=== PATIENT | female | born 1990 | race Caucasian/White ===

== ENCOUNTER → 2016-08-25 | Outpatient (CLI) | payer BC ==
[2016-08-25 14:47] LABS: APPEARANCE,URINE SLIGHTLY-CLOUDY; BILIRUBIN,URINE NEGATIVE (NEGATIVE); GLUCOSE, URINE NEGATIVE (NEGATIVE); KETONES,URINE NEGATIVE (NEGATIVE); LEUKOCYTE ESTERASE,URINE NEGATIVE (NEGATIVE); NITRITE,URINE NEGATIVE (NEGATIVE); PROTEIN,URINE NEGATIVE (NEGATIVE); URINE SPECIFIC GRAVITY 1.003; UROBILINOGEN,URINE NEGATIVE mg/dL (<2.0)
[2016-08-25 14:48] LABS: ABSOLUTE EOSINOPHILS # (AUTO) 0.1 10^3/uL (0.0-0.6); ABSOLUTE LYMPHOCYTES (AUTO) 1.5 10^3/uL (0.5-4.7); ABSOLUTE MONOCYTES (AUTO) 0.5 10^3/uL (0.1-1.4); ABSOLUTE NEUT (AUTO) 1.9 10^3/uL (1.7-8.2); BASOPHILS % (AUTO) 0.4 % (0-2); EOSINOPHILS % (AUTO) 1.7 % (0-6); HEMOGLOBIN 13.4 g/dL (12.0-15.5); HGB HCT DIFFERENCE -1.8; LYMPHOCYTES % (AUTO) 38.2 % (13-45); MEAN CORPUSCULAR HEMOGLOBIN 27.9 pg (27.0-33.4); MEAN CORPUSCULAR HGB CONC 31.9 g/dL (32.0-36.0); MEAN CORPUSCULAR VOLUME 88 fl (80-97); MONOCYTES % (AUTO) 11.8 % (3-13); RED CELL DISTRIBUTION WIDTH 12.7 % (11.5-14.0); SEGMENTED NEUTROPHILS % (AUTO) 47.9 % (42-78); WHITE BLOOD COUNT 3.9 10^3/uL (4.0-10.5)
[2016-08-25 15:15] LABS: ALANINE AMINOTRANSFERASE 43 U/L (9-52); ALBUMIN 5.2 g/dL (3.5-5.0); ALKALINE PHOSPHATASE 54 U/L (38-126); ANION GAP 14 (5-19); ASPARTATE AMINO TRANSFERASE 34 U/L (14-36); BILIRUBIN,TOTAL 0.7 mg/dL (0.2-1.3); BLOOD UREA NITROGEN 9 mg/dL (7-20); CALCIUM 9.9 mg/dL (8.4-10.2); CARBON DIOXIDE 26 mmol/L (22-30); CHLORIDE 101 mmol/L (98-107); CREATININE RESULT 0.63 mg/dL (0.52-1.25); GLUCOSE 90 mg/dL (75-110); POTASSIUM 4.4 mmol/L (3.6-5.0); SODIUM 141.2 mmol/L (137-145); TOTAL PROTEIN 8.1 g/dL (6.3-8.2)
[2016-08-27 07:39] LABS: HEPATITIS C VIRUS AB 0.1 s/co ratio (0.0-0.9)
[2016-08-27 12:44] LABS: VARICELLA ZOSTER IGG AB 1194 index (Immune >165)
== END ==
LOC: OD 13:42
DX: Z00.00 Encounter for general adult medical examination without abnormal findings (principal)
CPT/HCPCS: 36415; 80053; 80074; 81001; 83036; 84443; 85025; 86704; 86705; 86706; 86707; 86787; 86803; 87340; 87350

== ENCOUNTER 2020-04-01 04:57 | Inpatient (IN) | payer OTHER ==
[2020-03-29 10:18] LABS: APPEARANCE,URINE CLEAR; BILIRUBIN,URINE NEGATIVE (NEGATIVE); COLOR,URINE STRAW; GLUCOSE, URINE NEGATIVE (NEGATIVE); KETONES,URINE NEGATIVE (NEGATIVE); LEUKOCYTE ESTERASE,URINE NEGATIVE (NEGATIVE); NITRITE,URINE NEGATIVE (NEGATIVE); PROTEIN,URINE NEGATIVE (NEGATIVE); URINE SPECIFIC GRAVITY 1.004; UROBILINOGEN,URINE NEGATIVE mg/dL (<2.0)
[2020-03-29 10:20] LABS: HEMATOCRIT 36.9 % (36.0-47.0); HEMOGLOBIN 12.6 g/dL (12.0-15.5); MEAN CORPUSCULAR HEMOGLOBIN 30.4 pg (27.0-33.4); MEAN CORPUSCULAR HGB CONC 34.2 g/dL (32.0-36.0); MEAN CORPUSCULAR VOLUME 89 fl (80-97); PLATELET COUNT 183 10^3/uL (150-450); RED BLOOD COUNT 4.16 10^6/uL (3.72-5.28); RED CELL DISTRIBUTION WIDTH 13.6 % (11.5-14.0)
[2020-03-29 10:49] LABS: URINE AMPHETAMINES SCREEN NEGATIVE; URINE BARBITURATES SCREEN NEGATIVE; URINE BENZODIAZEPINES SCREEN NEGATIVE; URINE COCAINE SCREEN NEGATIVE; URINE MARIJUANA (THC) SCREEN NEGATIVE; URINE METHADONE SCREEN NEGATIVE; URINE PHENCYCLIDINE SCREEN NEGATIVE
[2020-03-29 11:00] LABS: ABSOLUTE LYMPHOCYTES# (MANUAL) 1.8 10^3/uL (0.5-4.7); ABSOLUTE MONOCYTES # (MANUAL) 0.8 10^3/uL (0.1-1.4); BAND NEUTROPHILS % (MANUAL) 1 % (3-5); BASOPHILS % (MANUAL) 0 % (0-2); EOSINOPHILS % (MANUAL) 0 % (0-6); LYMPHOCYTES % (MANUAL) 22 % (13-45); METAMYELOCYTES % (MANUAL) 1 % (0-1); MONOCYTES % (MANUAL) 11 % (3-13); SEGMENTED NEUTROPHILS % (MAN) 61 % (42-78); TOTAL CELLS COUNTED 100
[2020-03-29 11:01] LABS: PLATELET COMMENT ADEQUATE; RBC MORPHOLOGY COMMENT NORMO-CYTIC/CHROMIC
[2020-04-01] MEDS ORDERED: CEFAZOLIN SODIUM 2 GM in DEXTROSE 5%-WATER 100 ML IV PRN (05:00)
[2020-04-01] MEDS ORDERED: CEFAZOLIN 2 GM/D5W RTU 2 GM/50 ML RTUPB IV PRN (05:00)
[2020-04-01] MEDS ORDERED: LIDOCAINE 0.5% INJ-PF (5 MG/ML) 50 ML SDV SUBCUT PRN (05:00)
[2020-04-01] MEDS ORDERED: NORMAL SALINE 1000 ML 1,000 ML IV ONE (05:45)
[2020-04-01] MEDS ORDERED: EPHEDRINE SULFATE INJ 50 MG/1 ML AMPULE ONE ×2 (06:29→13:24)
[2020-04-01] MEDS ORDERED: KETOROLAC TROMETHAMINE INJ/PF 30 MG/1 ML SDV ONE (06:29)
[2020-04-01] MEDS ORDERED: OXYTOCIN 10 UNIT/ML VIAL ONE ×2 (06:29→09:31)
[2020-04-01] MEDS ORDERED: FENTANYL CITRATE INJ/PF 100 MCG/2 ML AMPUL ONE ×2 (06:29→14:17)
[2020-04-01] MEDS ORDERED: ACETAMINOPHEN 0 MG/0 ML RTUPB IV ONE (06:30)
[2020-04-01] MEDS ORDERED: OXYTOCIN/0.9 % SODIUM CHLORIDE 0 UNIT/0 ML RTUINJ ONE (06:30)
[2020-04-01] MEDS ORDERED: MIDAZOLAM 2 MG/2 ML INJ ONE (06:30)
[2020-04-01] MEDS ORDERED: ONDANSETRON HCL INJ/PF 4 MG/2 ML SDV ONE (06:30)
[2020-04-01] MEDS: LACTATED RINGERS 1000 ML IV PRN ×3 (06:57→16:38)
[2020-04-01] MEDS ORDERED: MISOPROSTOL 0.1 MG TABLET ONE (08:29)
[2020-04-01] MEDS ORDERED: MISOPROSTOL 0.1 MG TABLET PV ONE (08:50)
[2020-04-01] MEDS ORDERED: LIDOCAINE 1% INJ-PF (10 MG/ML) 30 ML SDV ONE (09:31)
[2020-04-01] MEDS ORDERED: MISOPROSTOL 0.2 MG TABLET ONE (09:31)
[2020-04-01] MEDS ORDERED: OXYTOCIN/0.9 % SODIUM CHLORIDE 30 UNIT/500 ML RTUINJ ONE (09:31)
--- NOTE | 2020-04-01 10:43 | L&D Progress Notes ---
PROGRESS NOTES Datetime Report Generated by CPN: 04/01/2020 10:43 PROGRESS NOTE Comment: Doing well, Cat 1 strip, POC discussed with pt and hsb by Dr. Mcmanus LAST VAGINAL EXAM-NURSING Nursing Exam Dilitation: 2.0 Nursing Exam Effacement: 50 Nursing Exam Station: -2 FETUS A FHR Category: Category I SIGNATURE SIGNATURE: [id number] Assignment: Marge Mcmanus MD Signature: with User ID: Etienne : with User ID: [email or web address]
--- NOTE | 2020-04-01 12:04 | Admission Physical ---
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 Complaint Other: for transverse lie, now vtx Admit Impression : Term, Intrauterine ; No Active Labor; Intact Membranes; Induction of Labor Admit Plan: Admit to Unit; Initiate Labor Induction Protocol ALLERGIES Medication Allergies: Yes Medication Allergies: morphine (04/01/2020) Latex: No Latex Allergies OBSTETRICAL HISTORY EDC: 04/07/2020 00:00 : 1 Para: 0 Term: 0 : 0 SAB: 0 IAB: 0 Ectopic: 0 Livin Cesareans: 0 VBACs: 0 Multiple Births: 0 Gestational Diabetes: No Rh Sensitization: No Incompetent Cervix: No MATTHEW: No Infertility: No ART Treatment: No Uterine Anomaly: No IUGR: No Hx Previous C/S: No Macrosomia: No Hx Loss/Stillborn: No PIH: No Hx : No Placenta Previa/Abruption: No Depression/PP Depression: No PTL/PROM: No Post Hemorrhage: No Current Procedures: Ultrasound Obstetrical History Comments: G1-Current SEE RECORDS Alcohol: No Marijuana : No Cocaine: No Other Illicit Drugs: No Cigarettes: Former Smoker. [id number] MEDICAL HISTORY Diabetes: No Blood Transfusion: No Pulmonary Disease (Asthma, TB): No Breast Disease: No Hypertension: No Records Clerk Surgery: No Heart Disease: No Hosp/Surgery: Yes Autoimmune Disorder: No Anesthetic Complications: No Kidney Disease: No Abnormal Pap Smear: Yes Neuro/Epilepsy: No Psychiatric Disorders: No Other Medical Diseases: No Hepatitis/Liver Disease: No Significant Family History: No Varicosities/Phlebitis: No Trauma/Violence : No Thyroid Dysfunction: No Medical History Comments: Left leg surgery-Lengthening INFECTIOUS HISTORY Gonorrhea: No Genital Herpes: No Chlamydia: No Tuberculosis: No Syphilis: No Hepatitis: No HIV/AIDS Exposure: No Rash or Viral Illness: No HPV: No PHYSICAL EXAM General: Normal HEENT: Deferred Neurologic: Normal Thyroid: Normal Heart: Normal Lungs: Normal Breast: Deferred Back: Normal Abdomen: Normal Genitourinary Exam: Normal Extremities: Normal DTRs: Normal Pelvic Type: Adequate Physical Exam Comments: 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 Dr. Mcmanus discussed with pt and FOB and it was decided to keep her and do IOL GBS neg POC discussed, will start Pitocin, Cat 1 strip, irreg uc's PLANS FOR LABOR AND DELIVERY Labor and Delivery: None Pain Management: Epidural Feeding Preference: Formula Benefit of Breast Feed Discussed: Yes Circumcision: N/A INFORMED CONSENT Assignment: Marge Mcmanus MD Signature: with User ID: Etienne : with User ID: [email or web address]
[2020-04-01] MEDS ORDERED: ROPIVACAINE HCL 0.2% INJ/PF (2 MG/ML) 20 ML SDV ONE (13:25)
[2020-04-01] MEDS ORDERED: FENTANYL/BUPIVACAINE/NS/PF 300 MCG/150 ML RTUINJ EPI ONE (13:25)
--- NOTE | 2020-04-01 15:02 | L&D Progress Notes ---
PROGRESS NOTES Datetime Report Generated by CPN: 04/01/2020 15:01 PROGRESS NOTE Procedures: Artificial ROM; Sterile Vag Exam Plan: Continue Present Management; Anticipate Vaginal Delivery Vital Signs : Reviewed; Within Normal Limits Comment: VE=5-6/80/vtx/-1-0, AROM, mod mec, comfortable with epidural, uc's q 2 min, no Pitocin, Cat 1 strip LAST VAGINAL EXAM-NURSING Nursing Exam Dilitation: 5.0 Nursing Exam Effacement: 90 Nursing Exam Station: 0 MEMBRANES Membranes: Intact FETUS A FHR Category: Category I SIGNATURE SIGNATURE: [id number] Assignment: Marge Mcmanus MD Signature: with User ID: [email or web address] : with User ID: [email or web address]
--- NOTE | 2020-04-01 16:27 | L&D Progress Notes ---
PROGRESS NOTES Datetime Report Generated by CPN: 04/01/2020 16:27 PROGRESS NOTE Procedures: Artificial ROM; Sterile Vag Exam Plan: Continue Present Management Vital Signs : Reviewed; Within Normal Limits Comment: pt laboring on her own, no Pitocin, uc's q 2-3, uc's q 2-3, comfortable with epiudural, early decels LAST VAGINAL EXAM-NURSING Nursing Exam Dilitation: 5.0 Nursing Exam Effacement: 90 Nursing Exam Station: 0 MEMBRANES Membranes: Intact FETUS A Monitoring: External US FHR Category: Category I SIGNATURE SIGNATURE: [id number] Assignment: Marge Mcmanus MD Signature: with User ID: [email or web address] : with User ID: [email or web address]
[2020-04-01] MEDS ORDERED: PROMETHAZINE HCL 25 MG SUPP.RECT PR PRN (20:34)
[2020-04-01] MEDS ORDERED: GLYCERIN/WITCH HAZEL LEAF 1 EACH MED..WIPE TP PRN (20:34)
[2020-04-01] MEDS ORDERED: PSEUDOEPHEDRINE HCL 30 MG TABLET PO PRN (20:34)
[2020-04-01] MEDS ORDERED: PROMETHAZINE HCL 25 MG TABLET PO PRN (20:34)
[2020-04-01] MEDS ORDERED: ACETAMINOPHEN 325 MG TABLET PO PRN (20:34)
[2020-04-01] MEDS ORDERED: MISOPROSTOL 0.2 MG TABLET PO PRN (20:34)
[2020-04-01] MEDS ORDERED: OXYTOCIN/0.9 % SODIUM CHLORIDE 30 UNIT/500 ML RTUINJ IV PRN (20:34)
[2020-04-01] MEDS ORDERED: MEASLES,MUMPS&RUBELLA VACC/PF 0.5 ML VIAL SUBCUT PRN (20:34)
[2020-04-01] MEDS ORDERED: PROMETHAZINE HCL INJ 25 MG/1 ML VIAL IV PRN (20:34)
[2020-04-01] MEDS ORDERED: ACETAMINOPHEN WITH CODEINE #3 TABLET PO PRN (20:34)
[2020-04-01] MEDS ORDERED: DIBUCAINE 1% OINTMENT 28 GM TP PRN (20:34)
[2020-04-01] MEDS ORDERED: ZOLPIDEM TARTRATE 5 MG TABLET PO PRN (20:34)
[2020-04-01] MEDS ORDERED: MAGNESIUM HYDROXIDE SUSP 30 ML UDCUP PO PRN (20:34)
[2020-04-01] MEDS ORDERED: ACETAMINOPHEN 650 MG SUPP.RECT PR PRN (20:34)
[2020-04-01] MEDS ORDERED: NA PHOS,M-B/NA PHOS,DI-BA (ADULT) 133 ML ENEMA PR PRN (20:34)
[2020-04-01] MEDS ORDERED: DIPHENHYDRAMINE HCL 25 MG CAPSULE PO PRN (20:34)
[2020-04-01] MEDS ORDERED: BENZOCAINE/MENTHOL AEROSOL SPRAY 56 ML TOP PRN (20:34)
[2020-04-01] MEDS ORDERED: DIPH/PERTUSS(ACELL)/TETANUS VAC/PF 0.5 ML SYR (>=10YO) IM PRN (20:34)
--- NOTE | 2020-04-01 23:21 | Birth Certificate Data ---
Cert Data Datetime Report Generated by CPN: 04/01/2020 23:21 CERTIFICATE DATA 47a. Care: Yes (04/01/2020 08:24:Cherise Vivar RN) 47b. Date of First Visit: 09/16/2019 00:00 (04/01/2020 08:24:Cherise Vivar RN) 47c. Date of Last Visit: 03/26/2020 00:00 (04/01/2020 08:24:November MARIELLA Lyle) 47d. Number of Visits: 10 (04/01/2020 08:24:November MARIELLA Lyle) 48a. Number of Prev Live Births: 0 (04/01/2020 08:24:Cherise Vivar RN) 48b. Now Livin (04/01/2020 08:24:Cherise Vivar RN) 48c. Live Births Now : 0 (04/01/2020 08:24:QS system process) 48e. Losses: 0 (04/01/2020 08:24:Cherise Vivar RN) RISK FACTORS IN THIS 49a. Diabetes: No (04/01/2020 08:24:Carrol Lyle RN) 49b. Hypertension: No (04/01/2020 08:24:Carrol Lyle RN) 49c. Previous Births: 0 (04/01/2020 08:24:Cherise Vivar RN) 49d. Stillborns: No (04/01/2020 08:24:Carrol Lyle RN) 49d. IUGR: No (04/01/2020 08:24:Carrol Lyle RN) 49e. Infertility Treatment: No (04/01/2020 08:24:Carrol Lyle RN) 49f. Previous Cesareans: 0 (04/01/2020 08:24:Cherise Vivar RN) Mother's Height 50b. Height Inches: 62 (04/01/2020 23:15:QS system process) Mother's Weight 51a. Pre- Weight (lbs): 111 (04/01/2020 08:24:Cherise Vivar RN) 51b. Weight at Delivery (lbs): 147 (04/01/2020 23:15:QS system process) 52. Dt Last Normal Menses Began: 06/20/2019 00:00 (04/01/2020 08:24:Carrol Lyle RN) Infections Present/Treated 53a. Gonorrhea: No (04/01/2020 08:24:Carrol Lyle RN) Results this Hospital Visit : Negative (04/01/2020 08:24:Cherise Vivar RN) 53b. Syphilis: No (04/01/2020 08:24:Carrol Lyle RN) 53c. Chlamydia: No (04/01/2020 08:24:Carrol Lyle RN) Results this Hospital Visit: Negative (04/01/2020 08:24:Cherise Vivar RN) 53d. Hepatitis B: No (04/01/2020 08:24:Carrol Lyle RN) Results this Hospital Visit: Negative (04/01/2020 08:24:Cherise Vivar RN) 53e. Hepatitis C: Negative (04/01/2020 08:24:Cherise Vivar RN) 53h. Mother Tested for HBsAG: Yes (04/01/2020 08:24:Cherise Vivar RN) 53i. Date Tested: 09/16/2019 00:00 (04/01/2020 08:24:Cherise Vivar RN) 53j. Test Result: Negative (04/01/2020 08:24:Cherise Vivar RN) Obstetric Procedures 54a, b, c. Obstetric Procedures: Ultrasound (04/01/2020 08:24:Carrol Lyle RN) Cigarette Smoking 55a. 3 Months Before Preg - Ci (04/01/2020 08:24:Carrol Lyle RN) 55b. 1st Trimester of Preg- Ci (04/01/2020 08:24:Carrol Lyle RN) 55c. 2nd Trimester of Preg- Ci (04/01/2020 08:24:Carrol Lyle RN) 55d. 3rd Trimester of Preg- Ci (04/01/2020 08:24:Carrol Lyle RN) Onset of Labor 56a. PROM >12 Hrs: -162.53 (04/01/2020 08:24:QS system process) 56b. Precipitous Labor <3 Hrs: -162 (04/01/2020 08:24:QS system process) 56c. Prolonged Labor > 20 Hrs: -162 (04/01/2020 08:24:QS system process) 57a. Induction of Labor: N/A (04/01/2020 08:24:Carrol Lyle RN) 57a. Induction of Labor: Cytotec @ (04/01/2020 08:24:Carrol Lyle RN) 57c. Non-Vertex Presentation A: Vertex (04/01/2020 08:24:VIKI Barragan) 57d. Steroids - Lung Mat: None (04/01/2020 08:24:Carrol Lyle RN) 57d. Steroids - Lung Mat: Not Applicable (04/01/2020 08:24:Carrol Lyle RN) 57f. Mat [place] or Temp >100.4: 99.4 (04/01/2020 08:24:VIKI Barragan) 57g. Moderate/Heavy Meconium: Moderate Meconium (04/01/2020 14:54:Carrol Lyle RN) 57h. Intolerance of Labor: N/A (04/01/2020 08:24:VIKI Barragan) 57i. Epidural/Spinal Anesthesia: Epidural (04/01/2020 08:24:Carrol Lyle RN) Method of Delivery 58a. Forceps - Unsuccessful A: N/A (04/01/2020 08:24:VIKI Barragan) 58b. Vacuum - Unsuccessful A: N/A (04/01/2020 08:24:Sally Kiser RNC) 58c. Presentation at 58c. Presentation at - A : Vertex (04/01/2020 08:24:VIKI Barragan) 58c. Presentation at - A : N/A (04/01/2020 08:24:Sally Bellavance, RNC) 58c. Presentation at - A : Cephalic (04/01/2020 08:24:Sally Bellavance, RNC) Final Route and Method of Del 58d. Baby A Route/Delivery: Vaginal (04/01/2020 20:22:Sally Bellavance, RNC) 58e. Trial of Labor Attempted: No (04/01/2020 08:24:Carrol Lyle RN) 58e. Trial of Labor Attempted A: N/A (04/01/2020 08:24:Carrol Lyle RN) 58e. Trial of Labor Attempted B: N/A (04/01/2020 08:24:Carrol Lyle RN) Maternal Morbidity 59b. 3rd or 4th Degree Lacs: None (04/01/2020 08:24:Sally Bellavance, RNC) Birthweight Baby A: 3270 (04/01/2020 08:24:Beatrice Tate RN) 60a. Pounds : 7 (04/01/2020 08:24:QS system process) 60b. Ounces: 3 (04/01/2020 08:24:QS system process) 61. GA at Delivery Baby A: 39.1 (04/01/2020 08:24:Beatrice Tate RN) : Full Term- 39- 40.6 Weeks (04/01/2020 08:24:QS system process) 62a. 5 Minute Baby A: 9 (04/01/2020 08:24:QS system process)
--- NOTE | 2020-04-01 23:21 | Delivery Summary ---
Del Sum A-C Datetime Report Generated by CPN: 04/01/2020 23:21 DELIVERY PERSONNEL DELIVERY PERSONNEL: [id number] Delivery Doctor:: Marge Mcmanus MD Labor and Delivery Nurse:: Beatrice Tate RNmft Nurse:: Sally Kiser RNC Nursery Nurse:: Jillian Pastrana RN Assembly Technician/INDUSTRIAL MECHANIC: charissa Gutierrez VEGETABLE WORKER Assembly Technician/INDUSTRIAL MECHANIC: Tanvi Gonzalez, ST MATERNAL INFORMATION Delivery Anesthesia: Epidural Medications After Delivery: Pitocin 30 Units in 500ml NS/D5W Estimated Blood Loss (ml): 300 Delivery QBL: 50 Maternal Complications: None Provider Comments: Called to patients room as she was complete and had the urge to push. She pushed through two contractions and delivered a viable female infant over an intact perineum. had a cord x2 around her leg but it was loose. Baby was vigorously crying. COrd clamping delayed for 30 seconds. After doubly clamping and cutting cord, infant was placed skin to skin with Mother. FUndal massage done and at first felt boggy. Bimanual exam with clots cleared and uterus then became firm. BOth stable LABOR SUMMARY EDC: 04/07/2020 00:00 No. Babies in Womb: 1 Attempted: No Labor Anesthesia: Epidural LABOR INFORMATION Reason for Induction: Other Reason for Induction- Other: elective for unstable lie Onset of Labor: 04/01/2020 14:37 Complete Dilatation: 04/01/2020 19:52 Cervical Ripening Agents: Cytotec @ Oxytocin: N/A Group B Beta Strep: Negative Antibiotics # of Doses: n/a Name of Antibiotic Given: 0 Steroids Given: None Reason Steroids Not Administered: Not Applicable MEMBRANES Membranes Rupture Method: Artificial Rupture of Membranes: 04/01/2020 14:54 Length of Rupture (hr): -162.53 Amniotic Fluid Color: Moderate Meconium Amniotic Fluid Amount: Small Amniotic Fluid Odor: Normal STAGES OF LABOR Stage 1 hr: 5 Stage 1 min: 15 Stage 2 hr: -167 Stage 2 min: -30 Stage 3 hr: 0 Stage 3 min: 3 Total Time in Labor hr: -162 Total Time in Labor min: -12 VAGINAL DELIVERY Episiotomy: None Laceration #1: None Laceration Extension #1: N/A Laceration Repair: Not Applicable Sponge Count Correct: N/A Sharps Count Correct: N/A CSECTION DELIVERY Primary Indication: N/A BABY A INFORMATION Delivery Date/Time: 03/25/2020 20:22 Method of Delivery: Vaginal Nurse Controlled Delivery: No Born in Route : No : N/A Forceps: N/A Vacuum Extraction: N/A Shoulder Dystocia : No PRESENTATION/POSITION BABY A Presentation: Cephalic Cephalic Presentation: Vertex Vertex Position: Left Occipital Anterior Breech Presentation: N/A PLACENTA INFORMATION BABY A Placenta Delivery Time : 03/25/2020 20:25 Placenta Method of Delivery: Spontaneous Placenta Status: Delivered SCORES BABY A Heart Rate 1 min: >100 bpm Resp Effort 1 min: Good Cry Reflex Irritability 1 min: Cough or Sneeze or Pulls Away Muscle Tone 1 min: Active Motion Color 1 min: Blue/Pale Resuscitation Effort 1 min: Tactile Stimulation SCORE 1 MIN: 8 Heart Rate 5 min: >100 bpm Resp Effort 5 min: Good Cry Reflex Irritability 5 min: Cough or Sneeze or Pulls Away Muscle Tone 5 min: Active Motion Color 5 min: Body Lomas, Extremities Blue Resuscitation Effort 5 min: Tactile Stimulation SCORE 5 MIN: 9 INFANT INFORMATION BABY A Gestational Age at Delivery: 39.1 Gestational Status: Full Term- 39- 40.6 Weeks Infant Outcome : Liveborn Infant Condition : Stable Infant Sex: Female IDENTIFICATION BABY A Verification Date/Time: 04/01/2020 20:53 ID Band Number: [id number] Mother's Name Verified: Yes RN Verifying : SManasa Lange, RN Additional Verifying Personnel: Maura Kiser RN WEIGHT/LENGTH BABY A Birthweight (gm): 3270 Weight (lb): 7 Weight (oz): 3 Length (in): 19.00 Length (cm): 48.26 CORD INFORMATION BABY A No. Cord Vessels: 3 Nuchal Cord : N/A Nuchal Cord- Other: loose cord x2 around left leg Cord Blood Taken: Yes-For Storage (Mom's Blood type +) Infant Suction: None ASSESSMENT BABY A Complications: None Physical Findings at Delivery: Within Normal Limits Infant Respirations: Appears Normal Skin to Skin: Yes Information Security Consultant/ALS Called : Yes Care By: H Zeina RN Transferred To: Remains with Mother BABY B INFORMATION : N/A SIGNATURES Signature: with User ID: Alo : with User ID: [email or web address]
[2020-04-01] MEDS: FAMOTIDINE 20 MG TABLET PO SCH (23:34)
[2020-04-01] MEDS: IBUPROFEN 800 MG TABLET PO SCH (23:34)
[2020-04-02] MEDS: IBUPROFEN 800 MG TABLET PO SCH ×3 (06:56→22:09)
[2020-04-02 08:08] LABS: HEMOGLOBIN 11.1 g/dL (12.0-15.5); MEAN CORPUSCULAR HEMOGLOBIN 29.8 pg (27.0-33.4); MEAN CORPUSCULAR HGB CONC 33.6 g/dL (32.0-36.0); MEAN CORPUSCULAR VOLUME 89 fl (80-97); PLATELET COUNT 168 10^3/uL (150-450); RED BLOOD COUNT 3.71 10^6/uL (3.72-5.28); RED CELL DISTRIBUTION WIDTH 13.2 % (11.5-14.0); WHITE BLOOD COUNT 11.1 10^3/uL (4.0-10.5)
[2020-04-02] MEDS: DOCUSATE SODIUM 100 MG CAPSULE PO SCH ×2 (10:20→17:44)
[2020-04-02] MEDS: PRENATAL VITAMIN W DHA CAPSULE PO SCH (10:20)
[2020-04-02] MEDS: FERROUS SULFATE 325 MG TABLET PO SCH ×2 (10:20→17:44)
[2020-04-02] MEDS: SENNOSIDES/DOCUSATE 8.6-50 MG 1 EACH TABLET PO SCH (10:20)
[2020-04-02] MEDS: FAMOTIDINE 20 MG TABLET PO SCH ×2 (10:21→22:08)
[2020-04-02] MEDS: ACETAMINOPHEN WITH CODEINE #3 TABLET PO PRN ×2 (10:23→17:48)
--- NOTE | 2020-04-02 14:58 | PDOC PROGRESS REPORT ---
Subjective-OB Progress Note for:: 04/02/20 Subjective: reports bleeding slowing, pain controlled with current meds. denies needs Physical Exam (OB) Vital Signs: Temp Pulse Resp BP Pulse Ox 97.5 F 65 16 127/71 H 98 04/02/20 11:35 04/02/20 11:35 04/02/20 11:35 04/02/20 11:35 04/02/20 11:35 Intake & Output 04/01/20 04/02/20 04/03/20 06:59 06:59 06:59 Intake Total 2006 400 Balance 2006 400 Weight 67.132 kg - Dressing Removed: No Incision: Well Approximated - Maternal Morbidity 59. Maternal Morbidity (serious complications experinced by the mother associated with labor and delivery: None of the above - Abdomen Description: Soft Hernia Present: No Fundal Description: Firm, Midline Fundal Height: u/u - u/2 - Abdominal Distension: No distension Tenderness: Nontender - Extremities Lower extremities: Syeda's sign - neg Calf: Normal, Nontender Objective-Diagnostic Laboratory: 04/02/20 07:06 04/02/20 07:06 WBC 11.1 H RBC 3.71 L Hgb 11.1 L Hct 33.0 L MCV 89 MCH 29.8 MCHC 33.6 RDW 13.2 Plt Count 168 Assessment and Plan(PN) - Assessment and Plan (1) Normal vaginal delivery Is this a current diagnosis for this admission?: Yes - Time Spent with Patient Time with patient: Less than 15 minutes - Disposition Anticipated Discharge Disposition: Home, Self Care Anticipated Discharge Timeframe: within 24 hours
[2020-04-03] MEDS: IBUPROFEN 800 MG TABLET PO SCH (06:06)
[2020-04-03] MEDS: PRENATAL VITAMIN W DHA CAPSULE PO SCH (10:28)
[2020-04-03] MEDS: DOCUSATE SODIUM 100 MG CAPSULE PO SCH (10:28)
[2020-04-03] MEDS: FAMOTIDINE 20 MG TABLET PO SCH (10:28)
[2020-04-03] MEDS: FERROUS SULFATE 325 MG TABLET PO SCH (10:28)
[2020-04-03] MEDS: SENNOSIDES/DOCUSATE 8.6-50 MG 1 EACH TABLET PO SCH (10:28)
--- NOTE | 2020-04-03 11:55 | PDOC DISCHARGE SUMMARY ---
Impression - Admit/DC Date/PCP Admission Date/Primary Care Provider: 04/01/20 04:57 SREE KENT MD Discharge Date: 04/03/20 - Discharge Diagnosis (1) Normal vaginal delivery Is this a current diagnosis for this admission?: Yes (2) Encounter for induction of labor Is this a current diagnosis for this admission?: Yes - Additional Information Discharge Diet: Regular Discharge Activity: Balance Activity w/Rest, Pelvic Rest Referrals: SREE KENT MD [Primary Care Provider] - Prescriptions: Ibuprofen [Motrin 800 mg Tablet] 800 mg PO Q8HP PRN #60 tablet PRN Reason: Home Medications: Prenat 115/Iron Fum/Folic/Dss [ 19 Tablet] 1 each PO ASDIR PRN 03/29/20 Ibuprofen [Motrin 800 mg Tablet] 800 mg PO Q8HP PRN #60 tablet 04/03/20 Hospital Course 59. Maternal Morbidity (serious complications experinced by the mother associated with labor and delivery: None of the above Results Laboratory Results: WBC 11.1 10^3/uL (4.0-10.5) H 04/02/20 07:06 RBC 3.71 10^6/uL (3.72-5.28) L 04/02/20 07:06 Hgb 11.1 g/dL (12.0-15.5) L 04/02/20 07:06 Hct 33.0 % (36.0-47.0) L 04/02/20 07:06 MCV 89 fl (80-97) 04/02/20 07:06 MCH 29.8 pg (27.0-33.4) 04/02/20 07:06 MCHC 33.6 g/dL (32.0-36.0) 04/02/20 07:06 RDW 13.2 % (11.5-14.0) 04/02/20 07:06 Plt Count 168 10^3/uL (150-450) 04/02/20 07:06 Lymph % (Auto) Not Reportable 03/29/20 09:31 [place] % (Auto) Not Reportable 03/29/20 09:31 Eos % (Auto) Not Reportable 03/29/20 09:31 Baso % (Auto) Not Reportable 03/29/20 09:31 Absolute Neuts (auto) Not Reportable 03/29/20 09:31 Absolute Lymphs (auto) Not Reportable 03/29/20 09:31 Absolute Monos (auto) Not Reportable 03/29/20 09:31 Absolute Eos (auto) Not Reportable 03/29/20 09:31 Absolute Basos (auto) Not Reportable 03/29/20 09:31 Total Counted 100 03/29/20 09:31 Seg Neutrophils % Not Reportable 03/29/20 09:31 Seg Neuts % (Manual) 61 % (42-78) 03/29/20 09:31 Band Neutrophils % 1 % (3-5) L 03/29/20 09:31 Lymphocytes % (Manual) 22 % (13-45) 03/29/20 09:31 Atypical Lymphs % 4 % (0) 03/29/20 09:31 Monocytes % (Manual) 11 % (3-13) 03/29/20 09:31 Eosinophils % (Manual) 0 % (0-6) 03/29/20 09:31 Basophils % (Manual) 0 % (0-2) 03/29/20 09:31 Metamyelocytes % 1 % (0-1) 03/29/20 09:31 Abs Neuts (Manual) 4.4 10^3/uL (1.7-8.2) 03/29/20 09:31 Abs Lymphs (Manual) 1.8 10^3/uL (0.5-4.7) 03/29/20 09:31 Abs Monocytes (Manual) 0.8 10^3/uL (0.1-1.4) 03/29/20 09:31 Absolute Eos (Manual) 0.0 10^3/uL (0.0-0.6) 03/29/20 09:31 Abs Basophils (Manual) 0.0 10^3/uL (0.0-0.2) 03/29/20 09:31 Platelet Comment ADEQUATE 03/29/20 09:31 RBC Morph Comment NORMO-CYTIC/CHROMIC 03/29/20 09:31 Urine Color STRAW 03/29/20 09:40 Urine Appearance CLEAR 03/29/20 09:40 Urine pH 7.0 (5.0-9.0) 03/29/20 09:40 Ur Specific [place] 1.004 03/29/20 09:40 Urine Protein NEGATIVE mg/dL (NEGATIVE) 03/29/20 09:40 Urine Glucose (UA) NEGATIVE mg/dL (NEGATIVE) 03/29/20 09:40 Urine Ketones NEGATIVE mg/dL (NEGATIVE) 03/29/20 09:40 Urine Blood NEGATIVE (NEGATIVE) 03/29/20 09:40 Urine Nitrite NEGATIVE (NEGATIVE) 03/29/20 09:40 Urine Bilirubin NEGATIVE (NEGATIVE) 03/29/20 09:40 Urine Urobilinogen NEGATIVE mg/dL (<2.0) 03/29/20 09:40 Ur Leukocyte Esterase NEGATIVE (NEGATIVE) 03/29/20 09:40 Urine WBC (Auto) 0 /HPF 03/29/20 09:40 Urine RBC (Auto) 0 /HPF 03/29/20 09:40 Urine Bacteria (Auto) TRACE /HPF 03/29/20 09:40 Squamous Epi Cells Auto 3 /HPF 03/29/20 09:40 Urine Mucus (Auto) RARE /LPF 03/29/20 09:40 Urine Ascorbic Acid NEGATIVE (NEGATIVE) 03/29/20 09:40 Urine Opiates Screen NEGATIVE 03/29/20 09:40 Urine Methadone Screen NEGATIVE 03/29/20 09:40 Ur Barbiturates Screen NEGATIVE 03/29/20 09:40 Ur Phencyclidine Scrn NEGATIVE 03/29/20 09:40 Ur Amphetamines Screen NEGATIVE 03/29/20 09:40 U Benzodiazepines Scrn NEGATIVE 03/29/20 09:40 Urine Cocaine Screen NEGATIVE 03/29/20 09:40 U Marijuana (THC) Screen NEGATIVE 03/29/20 09:40 COVID-19 Source NASOPHARYNGEAL 03/29/20 09:28 COVID-19 ([place]) NOT DETECTED 03/29/20 09:28 Blood Type A POSITIVE 03/31/20 14:40 Antibody Screen NEGATIVE 03/31/20 14:40 Plan Plan of Treatment: follow up in 4 weeks at [facility] for post check
[2020-04-03 12:39] VITALS: BP 127/71
== END 2020-04-03 14:05 | disposition home or self-care (01) | DRG 807 ==
LOC: 2N 04:57 → LR 08:22 → 2N 22:44
PROVIDERS: ADMIT Obstetrics & Gynecology; ATTEND Obstetrics & Gynecology
PROC: 10E0XZZ Delivery of Products of Conception, External Approach (ICD-10-PCS; principal; 2020-04-01)
DX: O69.2XX0 Labor and delivery complicated by other cord entanglement, with compression, not applicable or unspecified (principal); Z37.0 Single live birth; O77.0 Labor and delivery complicated by meconium in amniotic fluid; Z3A.39 39 weeks gestation of pregnancy; Z11.59 Encounter for screening for other viral diseases
CPT/HCPCS: 1967; 36415; 59025; 80307; 81001; 85025; 85027; 86850; 86900; 86901; 87635; 94760; C9803; J0131; J1885; J2250; J2405; J2590; J2795; J3010; J3490; J7030; J7120